=== PATIENT | male | born 1935 | race Caucasian/White ===

== ENCOUNTER 2017-01-22 12:29 | Inpatient (IN) | payer OTHER ==
[~2017-01-22] VITALS: Ht 165.1 cm; Wt 83.3 kg
[2017-01-22 12:33] VITALS: BP 110/51
[2017-01-22 13:07] LABS: PLATELET COUNT 282 x10^3mcL (130-400)
[2017-01-22 13:14] LABS: RED CELL DISTRIBUTION WIDTH 18.6 % (11.5-14.5)
[2017-01-22 13:37] LABS: BAND NEUTROPHIL 5 % (0-10); MONOCYTE 7 % (0-7); SEGMENTED NEUTROPHILS 79 % (37-75); rbc morphology (normal/abnorm) ABNORMAL (NORMAL)
[2017-01-22 13:50] LABS: CARBON DIOXIDE 20.8 mmol/L (21-32); CHLORIDE SERUM 102 mmol/L (98-107); CREATININE SERUM 2.3 mg/dL (0.7-1.3); GLUCOSE SERUM 120 mg/dL (74-106); POTASSIUM SERUM 4.7 mmol/L (3.5-5.1); SODIUM SERUM 142 mmol/L (136-145)
[2017-01-22 13:55] LABS: ALBUMIN 2.8 g/dL (3.4-5.0); ALKALINE PHOSPHATASE 81 U/L (46-116); ALT/SGPT 18 U/L (16-63); AST/SGOT 37 U/L (15-37); BILIRUBIN TOTAL 0.71 mg/dL (0.20-1.00); TOTAL PROTEIN, SERUM 6.8 g/dL (6.4-8.2)
[2017-01-22 14:31] VITALS: BP 85/59
[2017-01-22 15:00] VITALS: BP 97/71
[2017-01-22 15:17] LABS: T3 TOTAL 0.5 ng/mL
[2017-01-22 15:22] VITALS: BP 97/71
[2017-01-22 15:45] LABS: MAGNESIUM 2.4 mg/dL (1.8-2.4); PHOSPHOROUS 8.5 mg/dL (2.5-4.9)
[2017-01-22 15:48] LABS: CHOLESTEROL/HDL RATIO 3.2
[2017-01-22 15:55] LABS: FREE T4 0.71 ng/dL (0.76-1.46)
[2017-01-22 15:56] LABS: FREE THYROXINE INDEX 1.4 ug/dL (1.4-4.5); T4(THYROXINE) 3.8 ug/dL (4.7-13.3)
[2017-01-22 18:05] VITALS: BP 103/73
[2017-01-22] MEDS ORDERED: APAP/HYDROCODON1 T11 (19:33)
[2017-01-22] MEDS ORDERED: CAPECITABINE500 MG PO (19:34)
[2017-01-22] MEDS ORDERED: GABAPENTIN300 M4 PO (19:34)
[2017-01-22] MEDS ORDERED: ONDANSETRON4 M2 PO (19:34)
[2017-01-22] MEDS ORDERED: PHARMASSURE VI100 MG PO (19:34)
[2017-01-22] MEDS ORDERED: FINASTERIDE5 M1 PO (19:34)
[2017-01-22] MEDS ORDERED: METOPROLOL SUC100 M2 (19:34)
[2017-01-22] MEDS ORDERED: FLAGYL500 MG PO (19:34)
[2017-01-22] MEDS ORDERED: NEOMYCIN SULFA500 MG PO (19:34)
[2017-01-22] MEDS ORDERED: NYSTOP100000 U/G TP (19:34)
[2017-01-22] MEDS ORDERED: TAMSULOSIN HYD0.4 M1 PO (19:35)
[2017-01-22] MEDS ORDERED: VITAMIN D50000 I4 PO (19:35)
== END 2017-01-22 19:55 | disposition expired | DRG 296 ==
LOC: ED 12:29 → IC 14:04
PROVIDERS: Emergency Medicine; ADMIT Family Medicine Sports Medicine
PROC: 5A12012 Performance of Cardiac Output, Single, Manual (ICD-10-PCS; principal; 2017-01-22)
PROC: 30233N1 Transfusion of Nonautologous Red Blood Cells into Peripheral Vein, Percutaneous Approach (ICD-10-PCS; 2017-01-22)
PROC: 0BH17EZ Insertion of Endotracheal Airway into Trachea, Via Natural or Artificial Opening (ICD-10-PCS; 2017-01-22)
PROC: 5A1935Z Respiratory Ventilation, Less than 24 Consecutive Hours (ICD-10-PCS; 2017-01-22)
DX: I46.9 Cardiac arrest, cause unspecified (principal); N17.0 Acute kidney failure with tubular necrosis; E43 Unspecified severe protein-calorie malnutrition; K92.0 Hematemesis; E87.2 Acidosis; C18.9 Malignant neoplasm of colon, unspecified; Z66 Do not resuscitate; Z51.5 Encounter for palliative care
CPT/HCPCS: 31500; 36600; 83880; 84439; A4628; C9113; J0171; J2270; J2354; J2543; J3490; J7030; J7040; P9016; Q0092